=== PATIENT | male | born 1970 | race Caucasian/White ===

== ENCOUNTER 2016-10-10 01:25 | Emergency (ER) | payer SELFPAY ==
[~2016-10-10] VITALS: Ht 170.2 cm; Wt 65.0 kg
[2016-10-10 01:34] VITALS: TEMP 36.8; Ht 170.2 cm; Wt 65.0 kg
[2016-10-10 02:23] LABS: URINE APPEARANCE CLEAR (CLEAR); URINE BILIRUBIN NEG (NEG); URINE COLOR YELLOW; URINE NITRITE NEG (NEG); UROBILINOGEN NEG (NEG); ZZUR CULT IF INDIC CLEAN CATCH NO
[2016-10-10 02:24] LABS: HEMATOCRIT 33.4 % (42-52); MEAN CELL VOLUME 82.1 fL (80-100); MEAN CORPUSCULAR HEMOGLOBIN 28.3 pg (25-34); MEAN CORPUSCULAR HGB CONC 34.4 g/dl (32-36); MEAN PLATELET VOLUME 8.5 fL (7.4-10.4); PLATELET COUNT 356 K/uL (130-400); RED BLOOD COUNT 4.07 M/uL (4.7-6.1); WHITE BLOOD COUNT 9.73 K/uL (4.8-10.8)
[2016-10-10 02:27] LABS: MANUAL MICROSCOPIC REQUIRED? NO; REVIEW REQ? NO
[2016-10-10] MEDS ORDERED: OPTIRAY 320 IV PRN (02:30)
[2016-10-10 02:42] LABS: ALT/SGPT 33 U/L (12-78); AST/SGOT 45 U/L (15-37); BLOOD UREA NITROGEN 7 mg/dl (7-18); BUN/CREATININE RATIO 9.5 (10-20); CARBON DIOXIDE 23 mmol/L (21-32); CHLORIDE 100 mmol/L (98-107); CREATININE 0.75 mg/dl (0.60-1.40); GLUCOSE 200 mg/dl (70-99); POTASSIUM 3.1 mmol/L (3.5-5.1); SODIUM 137 mmol/L (136-145)
[2016-10-10 02:44] LABS: ALB/GLOB RATIO 0.9 (0.9-2); ALKALINE PHOSPHATASE 63 U/L (45-117); C-REACTIVE PROTEIN < 0.29 mg/dl (0-0.29)
[2016-10-10 02:45] LABS: BENZODIAZEPINE, URINE NEG (NEG); COCAINE,URINE NEG (NEG); PHENCYCLIDINE, URINE NEG (NEG)
[2016-10-10 02:45] LABS: BASO % 0.3 %; BASO ABS # 0.03 K/uL (0-0.2); COMPLETE YES; EOS % 0.7 %; IG% 0.3 %; LYMPH % 36.6 %; LYMPH ABS # 3.56 K/uL (1.2-3.4); MONO % 8.1 %
[2016-10-10 03:34] VITALS: BP 105/59; PULSE 78; O2SAT 95
--- NOTE | 2016-10-10 08:17 | DIAGNOSTIC IMAGING REPORT ---
ABDOMEN AND PELVIS CT WITH IV CONTRAST CT DOSE: 293.75 mGy.cm HISTORY: Generalized abdominal pain. IV Drug user. +etoh. Reported crohns hx. TECHNIQUE: Multiaxial CT images of the abdomen and pelvis were performed following the use of intravenous contrast. COMPARISON STUDY: None. FINDINGS: There is a partially imaged 12 mm nodule within the right middle lobe. This may demonstrate peripheral calcification and internal fat. No pneumoperitoneum. No pneumatosis. Mild thickening of the distal esophagus. The liver, gallbladder, spleen, pancreas, and adrenal glands are unremarkable. 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 No renal or ureteral calculi. The bladder is unremarkable. No bowel wall thickening or obstruction. The appendix appears to be surgically absent. No retroperitoneal lymphadenopathy. Mild calcified plaque within the abdominal aorta. IMPRESSION: 1. No bowel wall thickening or obstruction. 2. Horseshoe kidney with mild bilateral pelviectasis. No renal or ureteral calculi. 3. A partially imaged 12 mm nodule within the right middle lobe. This may represent a hamartoma as described above but is not completely visualized. Follow-up nonemergent chest CT is recommended for further evaluation. Electronically signed by: Gen Huang M.D. 10/10/2016 8:15 AM Dictated Date/Time: 10/10/2016 8:08 AM
--- NOTE | 2016-10-10 21:11 | EMERGENCY ROOM VISIT NOTE ---
History First contact with patient: 01:47 Chief Complaint: GI ASSESSMENT Stated Complaint: CHRONES DISEASE,INTESTINES HURT,STRESS Nursing Triage Summary: OBDULIO Arboleda and this RN at bedside to examine pt. pt reports "my guts are killing me. I've had chrons for 10 years. I have chronic diarrhea. I'm sick of it" reports he was at [place] "and i don't have insurance so they wouldn't treat me. I'm homeless. I don't have medicare or madicade." pt reports he has been drinking tonight "a little bit. let me put it this way, the police and the mayor got involved in [place]. they'l say I walked out but I didn't. and [employer] tank driver brought me, the mayor got ahold of the [employer] tank driver and the police paid for it." pt lying in litter. pt alert. breathing WNL. no vomiting noted at this time. pt has personal wheelchair and eye patch on left eye. pt has poor hygeine. History of Present Illness The patient is a 46 year old male who presents to the Emergency Room for evaluation of severe 10/10 abdominal pain. The patient states that he was initially at [facility] this evening, where "they would not see me because I don't have insurance". The patient reports that he is homeless and has a history of Crohn's disease. He states that he has had abdominal pain for the past 10 years as well as diarrhea for the past 10 months. The patient appears intoxicated on exam, and states that he traveled to this emergency department from [place] via [facility] [employer] [facility]er that was paid for by "the [employer] of [place]". The patient states that he is not able to take oral medication because he vomits. He reports allergies to essentially every pain medication except Dilaudid, which she is specifically requesting. The patient does not have a PCP or GI follow-up as he is homeless and does not typically stay in one place for very long. Review of systems is grossly positive. The patient does not wish for mental health evaluation. Review of Systems More than 10 systems were reviewed and otherwise negative with the exception of history of present illness. Past Medical/Surgical History Reported history of Crohns Family History No pertinent family history Social History Smoking Status: Current Every Day Smoker Housing Status: other Current/Historical Medications No Active Prescriptions or Reported Meds Allergies Coded Allergies: No Known Allergies (Unverified , 10/10/16) Physical Exam Vital Signs Date Time Temp Pulse Resp B/P Pulse Ox O2 Delivery O2 Flow Rate FiO2 10/10/16 03:34 78 18 105/59 95 Room Air 10/10/16 01:34 36.8 96 18 155/66 95 Room Air Pain Rating (0-10): 0 Physical Exam VITALS: Vitals are noted on the nurse's note and reviewed by myself. Vital signs stable. GENERAL: Disheveled appearing male who is obviously intoxicated and smells of alcohol. He is very rude and inappropriate with his speech. Exam is limited as the patient is not cooperative. HEAD: Normocephalic atraumatic. HEART: Regular rate and rhythm without murmurs gallops or rubs. LUNGS: Clear to auscultation bilaterally without wheezes, rales or rhonchi. No retractions or accessory muscle use. ABDOMEN: Positive normal bowel sounds x 4. Soft, nontender, without masses or organomegaly. No guarding or rebound tenderness. MUSCULOSKELETAL: No muscle atrophy, erythema, or edema noted. Full range of motion without joint tenderness in all extremities. Tract sherman diffusely appreciated throughout the upper extremities. Medical Decision & Procedures ER Provider Diagnostic Interpretation: ABDOMEN AND PELVIS CT WITH IV CONTRAST CT DOSE: 293.75 mGy.cm HISTORY: Generalized abdominal pain. IV Drug user. +etoh. Reported crohns hx. TECHNIQUE: Multiaxial CT images of the abdomen and pelvis were performed following the use of intravenous contrast. COMPARISON STUDY: None. FINDINGS: There is a partially imaged 12 mm nodule within the right middle lobe. This may demonstrate peripheral calcification and internal fat. No pneumoperitoneum. No pneumatosis. Mild thickening of the distal esophagus. The liver, gallbladder, spleen, pancreas, and adrenal glands are unremarkable. 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 No renal or ureteral calculi. The bladder is unremarkable. No bowel wall thickening or obstruction. The appendix appears to be surgically absent. No retroperitoneal lymphadenopathy. Mild calcified plaque within the abdominal aorta. IMPRESSION: 1. No bowel wall thickening or obstruction. 2. Horseshoe kidney with mild bilateral pelviectasis. No renal or ureteral calculi. 3. A partially imaged 12 mm nodule within the right middle lobe. This may represent a hamartoma as described above but is not completely visualized. Follow-up nonemergent chest CT is recommended for further evaluation. Laboratory Results 10/10/16 02:00 Red Blood Count 4.07, Mean Corpuscular Volume 82.1, Mean Corpuscular Hemoglobin 28.3, Mean Corpuscular Hemoglobin Concent 34.4, Mean Platelet Volume 8.5, Neutrophils (%) (Auto) 54.0, Lymphocytes (%) (Auto) 36.6, Monocytes (%) (Auto) 8.1, Eosinophils (%) (Auto) 0.7, Basophils (%) (Auto) 0.3, Neutrophils # (Auto) 5.25, Lymphocytes # (Auto) 3.56, Monocytes # (Auto) 0.79, Eosinophils # (Auto) 0.07, Basophils # (Auto) 0.03 10/10/16 02:00 Test 10/10/16 01:50 10/10/16 02:00 10/10/16 02:15 Urine Color YELLOW Urine Appearance CLEAR (CLEAR) Urine pH 5.0 (4.5-7.5) Urine Specific [place] 1.000 (1.000-1.030) Urine Protein NEG (NEG) Urine Glucose (UA) 2+ (NEG) Urine Ketones NEG (NEG) Urine Occult Blood NEG (NEG) Urine Nitrite NEG (NEG) Urine Bilirubin NEG (NEG) Urine Urobilinogen NEG (NEG) Urine Leukocyte Esterase NEG (NEG) Urine Opiates Screen NEG (NEG) Urine Methadone, Qualitative NEG (NEG) Urine Barbiturates NEG (NEG) Urine Phencyclidine (PCP) Level NEG (NEG) Ur Amphetamine/Methamphetamine NEG (NEG) MDMA (Ecstasy) Screen NEG (NEG) Urine Benzodiazepines Screen NEG (NEG) Urine Cocaine Metabolite NEG (NEG) Urine Marijuana (THC) NEG (NEG) White Blood Count 9.73 K/uL (4.8-10.8) Red Blood Count 4.07 M/uL (4.7-6.1) Hemoglobin 11.5 g/dL (14.0-18.0) Hematocrit 33.4 % (42-52) Mean Corpuscular Volume 82.1 fL (80-100) Mean Corpuscular Hemoglobin 28.3 pg (25-34) Mean Corpuscular Hemoglobin Concent 34.4 g/dl (32-36) Platelet Count 356 K/uL (130-400) Mean Platelet Volume 8.5 fL (7.4-10.4) Neutrophils (%) (Auto) 54.0 % Lymphocytes (%) (Auto) 36.6 % Monocytes (%) (Auto) 8.1 % Eosinophils (%) (Auto) 0.7 % Basophils (%) (Auto) 0.3 % Neutrophils # (Auto) 5.25 K/uL (1.4-6.5) Lymphocytes # (Auto) 3.56 K/uL (1.2-3.4) Monocytes # (Auto) 0.79 K/uL (0.11-0.59) Eosinophils # (Auto) 0.07 K/uL (0-0.5) Basophils # (Auto) 0.03 K/uL (0-0.2) RDW Standard Deviation 45.9 fL (36.4-46.3) RDW Coefficient of Variation 15.6 % (11.5-14.5) Immature Granulocyte % (Auto) 0.3 % Immature Granulocyte # (Auto) 0.03 K/uL (0.00-0.02) Red Blood Cell Morphology Unremarkable Erythrocyte Sedimentation Rate 22 mm/hr (0-14) Anion Gap 14.0 mmol/L (3-11) Est Creatinine Clear Calc Drug Dose 111.9 ml/min Estimated GFR () 126.6 Estimated GFR (Non- 109.2 BUN/Creatinine Ratio 9.5 (10-20) Calcium Level 8.0 mg/dl (8.5-10.1) Total Bilirubin 0.4 mg/dl (0.2-1) Aspartate Amino Transf (AST/SGOT) 45 U/L (15-37) Alanine Aminotransferase (ALT/SGPT) 33 U/L (12-78) Alkaline Phosphatase 63 U/L (45-117) C-Reactive Protein < 0.29 mg/dl (0-0.29) Total Protein 7.0 gm/dl (6.4-8.2) Albumin 3.4 gm/dl (3.4-5.0) Globulin 3.6 gm/dl (2.5-4.0) Albumin/Globulin Ratio 0.9 (0.9-2) Lipase 283 U/L (73-393) Ethyl Alcohol mg/dL 252.0 mg/dl (0-3) ED Course Physical exam and history were performed. Nursing notes and EMR were reviewed. Patient appears to have a reported history of Crohn's disease with acute abdominal pain. The patient states that he was at [facility] earlier today, and he states they refused care because he did not have insurance. I was able to contact [facility], and the patient did have a medical screening at that facility. evidently the patient was in [place], called EMS for his pain. When EMS arrived he was belligerent with EMS, and EMS had to contact local police. The patient was actually taken to [place] emergency department by police, where he was evaluated by staff. The patient flatly refused any medical care until he was given specifically Dilaudid. The staff explained that he would not be given Dilaudid without appropriate objective findings, which displeased the patient. The patient left AGAINST MEDICAL ADVICE from [place]. He was able to contact an [facility] and is now at this facility for evaluation. On my arrival to the room the patient appears quite intoxicated. He was agreeable to an IV, and labs were drawn. The patient was fixated on his pain, and explained multiple times that the only medication he can take is IV Dilaudid. I explained to the patient that we would be performing an appropriate medical evaluation, and that I also would not be providing him Dilaudid without appropriate objective findings. The patient was quite displeased with this, and began name-calling, saying "you clementinaking miriam don't care about me". I acknowledged the patient's displeasure, and explained that we will be performing appropriate medical evaluation. As mentioned before, IV access was established and labs were obtained. CT scan was ordered. I would've preferred to use contrast, however the patient flatly refused. He would not allow anything going through the IV. Did not have pain medication. The patient's blood work is as above and was reviewed. He does not have a significantly elevated white blood cell count. He is mildly anemic. Glucose is 200, and the patient later reported that he is diabetic, but does not take medication for this. Lipase and transaminases are nondiagnostic. Urine is without evidence of infection. Drug of abuse screen is negative. The patient' s alcohol is greater than 250, which does seem to correlate with his physical exam findings. CT scan is as above and does not show acute findings to explain the patient's reported discomfort. Upon the patient's return to his room following CT scan, he was informed that we would not be providing him pain medication through his IV. Because of this he did rip out his IV, and would not allow us to place a pressure dressing to control the bleeding. Overall the patient appears medically cleared. He is displaying significant drug seeking behavior and does not have objective findings. Much of the challenge with this patient is a social aspect of his homelessness and discharge status. Because of this I did engage case management, who discussed options with the patient. The patient will be given a voucher for the local [facility], and information to present to the local homeless skilled nursing on [facility]. The patient is not able to be transported to the homeless skilled nursing for several hours. The patient was found to be sleeping quite comfortably in his ER bed on several re-evaluations. He did not have any worsening of symptoms. He will be awoken around 8 AM and provided a breakfast tray. The patient will be discharged to the skilled nursing at 9 AM with information to seek additional primary care/GI services. The patient continued to be belligerent throughout his ER stay. He will be placed on a no narcotic treatment plan at this facility. He was otherwise invited back to the ER anytime with new, worsening, or concerning symptoms. The chart was completed utilizing be2 Speech Voice Recognition Software. Grammatical errors, random word insertions, pronoun errors, and incomplete sentences are an occasional consequence of this system due to software limitations, ambient noise, and hardware issues. Any formal questions or concerns about the content, text, or information contained within the body of this dictation should be directly addressed to the provider for clarification. . Medical Decision Differential diagnosis: Etiologies such as malingering, drug-seeking, alcohol intoxication, appendicitis , diverticulitis, PUD, biliary pathology, UTI, pancreatitis, obstruction, mesenteric ischemia, aortic pathology, infections, inflammatory bowel disease, renal colic, as well as others were entertained. Impression Primary Impression: Abdominal pain Additional Impression: Alcohol intoxication Departure Information Dispostion Home / Self-Care Condition GOOD Prescriptions No Active Prescriptions or Reported Meds Forms HOME CARE DOCUMENTATION FORM, IMPORTANT VISIT INFORMATION Patient Instructions Alcoholism Get Help, Alcohol Abuse - [facility], [facility] Additional Instructions You were seen and evaluated today on an emergency basis only. This is not a substitute for, or an effort to provide, complete comprehensive medical care. It is not possible to recognize and treat all injuries or illnesses in a single emergency department visit. The emergency department is not able to treat ongoing chronic pain. You must establish care with a primary care physician. We have provided you information through our telephonic nurse case manager to help make this process easier for you. Stop drinking alcohol. This can worsen your symptoms. You are welcome to return to the emergency department anytime with new, worsening, or concerning symptoms. Problem Qualifiers
== END 2016-10-10 08:51 | disposition home or self-care (01) ==
LOC: C.EDB 01:29
DX: R10.9 Unspecified abdominal pain (principal); F10.129 Alcohol abuse with intoxication, unspecified; F17.200 Nicotine dependence, unspecified, uncomplicated; K50.90 Crohn's disease, unspecified, without complications

== ENCOUNTER 2016-10-10 23:35 | Emergency (ER) | payer SELFPAY ==
[~2016-10-10] VITALS: Ht 172.7 cm; Wt 72.6 kg
[2016-10-10 23:55] VITALS: TEMP 36.8; Ht 172.7 cm; Wt 72.6 kg
[2016-10-11 00:29] LABS: BUN/CREATININE RATIO 10.2 (10-20); CALCIUM 7.7 mg/dl (8.5-10.1); CREATININE 0.6 mg/dl (0.60-1.40); POTASSIUM 3.5 mmol/L (3.5-5.1)
--- NOTE | 2016-10-11 07:12 | EMERGENCY ROOM VISIT NOTE ---
ED Visit Note First contact with patient: 23:36 CHIEF COMPLAINT: Altered mental status from Alcohol overdose HISTORY OF PRESENT ILLNESS: This 46 year old male patient presents to the emergency department via ambulance for evaluation of altered mental status, presumably from alcohol intoxication. The patient was seen and evaluated by myself yesterday for abdominal pain and alcohol intoxication. He is homeless and was discharged from the ER to a local homeless group home. Evidently the patient left the homeless group home, went to [facility], where he has been drinking alcohol all day. He missed curfew at the homeless group home, and began to slam the doors in order to try to open them. Police were contacted for the disturbance. Upon arrival police contacted EMS, who now bring the patient here for further management. The patient does not have complaints. He is rude and belligerent, but will follow instructions. He admits to drinking alcohol tonight. He denies drug use. REVIEW OF SYSTEMS: Review of systems was somewhat limited secondary to patient' s presumed alcohol intoxication status. Review of systems was performed to the best of our ability and reperformed as the patient began to sober up. All other systems were reviewed and are negative. ALLERGIES: See EMR MEDICATIONS: See EMR PMH: IV drug abuse. Alcoholism. SOCIAL HISTORY: Homeless PHYSICAL EXAM VITALS: Vitals are noted on the nurse's note and reviewed by myself. Vital signs stable. Exam somewhat limited secondary to patient's cooperation. GENERAL: White male, who is in no acute distress and resting comfortably. Patient is visibly altered and smells of alcohol. HEAD: Normocephalic atraumatic. HEART: Regular rate and rhythm without murmurs gallops or rubs. LUNGS: Clear to auscultation bilaterally without wheezes, rales or rhonchi. No retractions or accessory muscle use. ABDOMEN: Positive normal bowel sounds x 4. Soft, nontender, without masses or organomegaly. No guarding or rebound tenderness. MUSCULOSKELETAL: No muscle atrophy, erythema, or edema noted. Gross motor function intact to all extremities. NEURO: Patient was alert to person but not place or time. They appear with altered mental status. SKIN: The skin was without rashes, erythema, edema, or bruising. No Tenting of the skin. EMERGENCY DEPARTMENT COURSE: Physical exam and history was performed. Nursing notes and EMR were reviewed. The patient appears to be altered on my examination. I suspect this is from an alcohol overdose. Conservative care measures and aspiration precautions were instituted. The patient was placed on water control supervisor and watched during the patient's stay. Blood work was obtained and was reviewed. The patient's blood alcohol level was 318. This appears to be the primary cause of the altered status. Patient was reevaluated multiple times throughout the course of their emergency department stay. He did not have deterioration of his condition. I discussed the case with the pillowcase cutter, as we will again need to provide appropriate disposition for the patient. He will be discharged back to the homeless group home via public transportation. Over time the patient did sober up and was able to talk, walk, and drink fluids without difficulty. The patient was felt stable for discharge. The patient was given alcohol intoxication handouts. Differential diagnosis: Etiologies such as alcohol intoxication, metabolic, infection, hypoglycemia, electrolyte abnormalities, cardiac sources, intracerebral event, toxicologic, neurologic, as well as others were entertained. DIAGNOSIS: Acute alcohol intoxication Current/Historical Medications No Active Prescriptions or Reported Meds Allergies Coded Allergies: No Known Allergies (Unverified , 10/10/16) Vital Signs Date Time Temp Pulse Resp B/P Pulse Ox O2 Delivery O2 Flow Rate FiO2 10/11/16 08:49 78 18 104/57 96 Room Air 10/11/16 06:53 76 18 93/56 97 Room Air 10/11/16 06:00 70 18 100/56 94 Room Air 10/11/16 01:40 76 18 104/70 95 Room Air 10/10/16 23:55 36.8 74 20 99/64 98 Room Air Laboratory Results 10/10/16 23:53 Test 10/10/16 23:53 Anion Gap 13.0 mmol/L (3-11) Est Creatinine Clear Calc Drug Dose 147.2 ml/min Estimated GFR () 138.8 Estimated GFR (Non- 119.7 BUN/Creatinine Ratio 10.2 (10-20) Calcium Level 7.7 mg/dl (8.5-10.1) Ethyl Alcohol mg/dL 318.0 mg/dl (0-3) Departure Information Impression Primary Impression: Alcohol intoxication Dispostion Home / Self-Care Condition FAIR Prescriptions No Active Prescriptions or Reported Meds Referrals No Doctor, Assigned (PCP) Forms HOME CARE DOCUMENTATION FORM, IMPORTANT VISIT INFORMATION Patient Instructions Alcoholism Get Help, Alcohol Abuse - [facility], [facility] Additional Instructions You were seen and evaluated today on an emergency basis only. This is not a substitute for, or an effort to provide, complete comprehensive medical care. It is not possible to recognize and treat all injuries or illnesses in a single emergency department visit. Go to the homeless group home from the emergency department. Follow-up with resources previously provided to you regarding your alcoholism. You are welcome to return to the emergency department anytime with new, worsening, or concerning symptoms.
[2016-10-11 08:49] VITALS: BP 104/57; PULSE 78; O2SAT 96
== END 2016-10-11 09:06 | disposition home or self-care (01) ==
LOC: EDBD 23:35 → C.EDB 23:37
DX: F10.129 Alcohol abuse with intoxication, unspecified (principal)